=== PATIENT | male | born 1985 | race Caucasian/White ===

== ENCOUNTER 2021-02-01 04:47 | Emergency (ER) | payer OTHER ==
--- NOTE | 2021-02-01 04:56 | EDM.PDOC ---
ED HPI GENERAL MEDICAL PROBLEM - General Chief Complaint: Upper Extremity Injury/Pain Stated Complaint: SHOULDER PAIN Time Seen by Provider: 02/01/21 04:51 Source of Information: Reports: Patient History Limitations: Reports: No Limitations - History of Present Illness INITIAL COMMENTS - FREE TEXT/NARRATIVE: 35-year-old male presents for left shoulder injury. Patient states 2 days ago at work he was pulling large oil pipes and afterwards noted a pain in his left shoulder. Pain has persisted and he is having difficulty lifting his left arm 2/2 pain. He has had difficulty sleeping. He has a prior R shoulder rotator cuff muscle injury and is concerned this could be a similar injury pattern on the left. No other injuries. Left Shoulder Pain Score (Numeric/FACES): 8 - Related Data Allergies Allergy/AdvReac Type Severity Reaction Status Date / Time No Known Allergies Allergy Verified 02/01/21 05:01 Home Meds: Home Meds . [No Known Home Meds] 02/01/21 [History] Review of Systems - Review of Systems Review Of Systems: Comprehensive ROS is negative, except as noted in HPI. ED EXAM, GENERAL - Physical Exam Exam: See Below Exam Limited By: No Limitations General Appearance: Alert, WD/WN, No Apparent Distress Ears: Hearing Grossly Normal Throat/Mouth: Normal Voice, No Airway Compromise Head: Atraumatic, Normocephalic Respiratory/Chest: No Respiratory Distress, Lungs Clear, Normal Breath Sounds, No Accessory Muscle Use Cardiovascular: Normal Peripheral Pulses, Regular Rate, Rhythm Extremities: Normal Inspection, Other (Limited range of motion of left shoulder secondary to pain, tenderness to palpation diffuse left AC joint anterior, posterior, lateral,normal sensation, normal scorer helper strength) Neurological: Alert, Normal Cognition, Normal Gait Psychiatric: Normal Affect, Normal Mood Skin Exam: Warm, Dry, Intact, Normal Color Course - Vital Signs Last Recorded V/S: Last Vital Signs Temp 97.5 F 02/01/21 04:58 Pulse 97 02/01/21 04:58 Resp 20 02/01/21 04:58 BP 117/81 02/01/21 04:58 Pulse Ox 100 02/01/21 04:58 - Orders/Labs/Meds Orders: Active Orders 24 hr Category Date Time Status DME for Discharge [COMM] Stat Oth 02/01/21 05:41 Ordered Meds: Medications Discontinued Medications Generic Name Dose Route Start Last Admin Trade Name Freq PRN Reason Stop Dose Admin Cyclobenzaprine HCl 10 mg 02/01/21 05:09 02/01/21 05:16 Cyclobenzaprine 10 Mg Tab PO 02/01/21 05:10 10 mg ONETIME ONE Administration Ibuprofen 600 mg 02/01/21 05:09 02/01/21 05:16 Ibuprofen 600 Mg Tab PO 02/01/21 05:10 600 mg ONETIME ONE Administration - Re-Assessments/Exams Free Text/Narrative Re-Assessment/Exam: 02/01/21 05:16 Will get XR imaging to ensure no dislocation or fracture; will give motrin and flexeril for pain. Patient placed on orthopedics follow-up list as I have a high suspicion for rotator cuff injury and he may need an MRI for further characterization. 02/01/21 05:42 X-ray imaging does not show any osseous abnormality. Will discharge with pain medication and follow-up orthopedics. Departure - Departure Time of Disposition: 05:42 Disposition: Home, Self-Care 01 Condition: Good Clinical Impression: Injury of left shoulder Qualifiers: Encounter type: initial encounter Qualified Code(s): S49.92XA - Unspecified injury of left shoulder and upper arm, initial encounter - Discharge Information Instructions: Shoulder Pain Referrals: PCP,None [Primary Care Provider] - Forms: ED Department Discharge Additional Instructions: Your x-ray imaging does not show fracture or dislocation of the shoulder. I am concerned for rotator cuff muscle injury. He will likely need an MRI for definitive diagnosis. You were placed on the orthopedic follow-up list so they will be expecting your call. Their information is provided below. I have prescribed pain medication to the vending machine in the waiting room. We gave you a sling for your shoulder to use for comfort. Please try to take your arm out of the sling at least 4-5 times a day and go through a range of motion exercise with your left shoulder to prevent frozen shoulder (adhesive capsulitis). [facility] [address], [address] [place] [address] The following information is given to patients seen in the emergency department who are being discharged to home. This information is to outline your options for follow-up care. We provide all patients seen in our emergency department with a follow-up referral. The need for follow-up, as well as the timing and circumstances, are variable depending upon the specifics of your emergency department visit. If you don't have a primary care physician on staff, we will provide you with a referral. We always advise you to contact your personal physician following an emergency department visit to inform them of the circumstance of the visit and for follow-up with them and/or the need for any referrals to a consulting specialist. The emergency department will also refer you to a specialist when appropriate. This referral assures that you have the opportunity for follow-up care with a specialist. All of these measure are taken in an effort to provide you with optimal care, which includes your follow-up. Under all circumstances we always encourage you to contact your private physician who remains a resource for coordinating your care. When calling for follow-up care, please make the office aware that this follow-up is from your recent emergency room visit. If for any reason you are refused follow-up, please contact the [facility] Emergency Department at and asked to speak to the emergency department charge nurse. Please follow up with your primary care physician. If you do not have a primary care physician, see below: [facility] [address] [place] [id number] [facility] [address] [place] [id number] [facility] [address] [place] [id number] Sepsis Event Note (ED) - Focused Exam Vital Signs: Vital Signs Temp Pulse Resp BP Pulse Ox 02/01/21 04:58 97.5 F 97 20 117/81 100 - My Orders Last 24 Hours: My Active Orders 02/01/21 05:41 DME for Discharge [COMM] Stat - Assessment/Plan Last 24 Hours: My Active Orders 02/01/21 05:41 DME for Discharge [COMM] Stat
[2021-02-01] MEDS ORDERED: Ibuprofen 600 MG Tab PO ONE (05:09)
[2021-02-01] MEDS ORDERED: Cyclobenzaprine 10 MG Tab PO ONE (05:09)
--- NOTE | 2021-02-01 05:40 | CR ---
Indication: Injury, pain Technique: Three views of the left shoulder Comparison: None Findings: There is no evidence of acute fracture. The glenohumeral and acromioclavicular joints are normally located. The surrounding soft tissues are unremarkable. The visualized thoracic structures are intact. Impression: No acute abnormality. Dictated by Albert Hoffman MD @ 02/01/2021 5:39:29 AM (Electronically Signed)
== END 2021-02-01 06:00 | disposition home or self-care (01) ==
LOC: MW.ED 04:47
DX: S49.92XA Unspecified injury of left shoulder and upper arm, initial encounter (principal); X50.1XXA Overexertion from prolonged static or awkward postures, initial encounter
CPT/HCPCS: 73030; 99283; A9270; 99285